=== PATIENT | male | born 1940 | race Caucasian/White ===

== ENCOUNTER 2019-01-03 11:16 | Inpatient (IN) | payer MEDICARE ==
[~2019-01-03] VITALS: Ht 170.2 cm; Wt 112.0 kg
--- NOTE | 2019-01-03 11:56 | NUR ---
PT TO ROOM FROM LOBBY AT THIS TIME.
[2019-01-03] MEDS ORDERED: ASPIRIN 81 MG TABLET CHEW ONE (11:58)
[2019-01-03] MEDS ORDERED: ASPIRIN 81 MG TABLET CHEW PO ONE (12:00)
[2019-01-03] MEDS ORDERED: SODIUM CHLORIDE FLUSH 10ML SYR IVF ONE (12:00)
--- NOTE | 2019-01-03 12:15 | NUR ---
LATE ENTRY FOR 1205 THIS RN IN TO ASSESS PT. RADIOLOGY BEDSIDE. EDMD BEDSIDE. WILL RETURN TO ASSESS AND FOLLOW OUT TASKS.
[2019-01-03] MEDS ORDERED: SODIUM CHLORIDE 0.9%, 500ML IVBOLUS ONE (12:30)
[2019-01-03] MEDS ORDERED: DILTIAZEM 5 MG/ML, 5ML IVPush ONE ×2 (12:30→14:00)
[2019-01-03] MEDS ORDERED: MORPHINE SULFATE 4 MG/ML, 1ML IVPush PRN (12:30)
--- NOTE | 2019-01-03 12:34 | NUR ---
piv established. pt tolerated with no complications. significant other bedside.
[2019-01-03] MEDS ORDERED: DILTIAZEM 5 MG/ML, 5ML ONE ×2 (12:36→13:51)
--- NOTE | 2019-01-03 12:52 | NUR ---
78 Y/O MALE PRESENTS TO ED WITH C/O LEFT HAND PAIN. PER SIGNIFICANT OTHER "WE CAME IN BECAUSE HIS LEFT HAND HAS BEEN HURTING. HE ALSO SEEMED LIKE HE WAS HAVING A HARD TIME BREATHING. HE HAS A HX OF A FIB FOR 5 YEARS." NO ACUTE DISTRESS NOTED. PT PLACED ON CONT PULSE OX,NIBP, BALANCER SCALE. NO C/O N/V/D, TRAUMA, SYNCOPE, CP
[2019-01-03] MEDS ORDERED: RABE20TA18 PO (12:58)
[2019-01-03] MEDS ORDERED: METO-93 PO (12:58)
[2019-01-03] MEDS ORDERED: ZOLP-413 PO (12:58)
[2019-01-03] MEDS ORDERED: LASIX (12:58)
[2019-01-03] MEDS ORDERED: ROSU40TA PO (12:58)
[2019-01-03] MEDS ORDERED: APIX5TAB PO (12:58)
[2019-01-03 12:59] LABS: BASOPHILS # (AUTO) 0.04 x10^3/uL (0-0.1); BASOPHILS % (AUTO) 0 % (0-1); EOSINOPHILS # (AUTO) 0.11 x10^3/uL (0-0.4); EOSINOPHILS % (AUTO) 1 % (1-7); LYMPHOCYTES # (AUTO) 1.57 x10^3/uL (1-3.4); LYMPHOCYTES % (AUTO) 16 % (22-44); MD NO; MEAN CORPUSCULAR HEMOGLOBIN 30.6 pg (27.5-34.5); MEAN CORPUSCULAR HGB CONC 33.4 g/dL (33.2-36.2); MEAN CORPUSCULAR VOLUME 91.8 fL (81-97); MEAN PLATELET VOLUME 7.4 fL (7.4-10.4); MONOCYTES # (AUTO) 0.72 x10^3/uL (0.2-0.8); MONOCYTES % (AUTO) 7 % (2-9); NEUTROPHILS # (AUTO) 7.59 x10^3/uL (1.8-6.8); NEUTROPHILS % (AUTO) 76 % (42-75); PLATELET COUNT 192 x10^3/uL (130-400); RED BLOOD COUNT 4.73 x10^6/uL (4.38-5.82); RED CELL DISTRIBUTION WIDTH 13.5 % (9.4-14.8)
[2019-01-03 13:05] LABS: ALBUMIN 3.2 g/dL (3.4-5.0); ANION GAP 8 mmol/L (5-15); CALCIUM 9.3 mg/dL (8.5-10.1); CHLORIDE 114 mmol/L (98-107)
--- NOTE | 2019-01-03 13:27 | NUR ---
PT RESTING ON GURNEY. NO ACUTE DISTRESS NOTED. HR HAS COME DOWN TO 92-106 AFTER MEDICATION. NO NEEDS REQUESTED AT THIS TIME. SIGNIFICANT OTHER BEDSIDE.
--- NOTE | 2019-01-03 13:31 | NUR ---
BEDSIDE REPORT TO SOF[facility]
[2019-01-03 13:43] LABS: HCT (SEDRATE) 43.5 % (39.2-51.8)
--- NOTE | 2019-01-03 13:48 | NUR ---
Pt resting comfortably, sig. other @ BS. Noted to still be in a-fib with rate 120's 130's. No CP or SOB, BP WNL. ER updated, remainder of labs pending.
--- NOTE | 2019-01-03 14:03 | NUR ---
Rate decreased to 100's after dose cardizem. TBADM. Pt & sig. other updated.
--- NOTE | 2019-01-03 14:26 | NUR ---
Medicated for L hand pain 6/10 as per emar.
[2019-01-03] MEDS ORDERED: COLCHICINE 0.6 MG TABLET PO ONE (14:30)
--- NOTE | 2019-01-03 14:58 | NUR ---
bedside report from RN Ana Maria, pt care assumed at this time. Pt in bed, awaiting admit bed, no needs at this time, WCTM.
[2019-01-03] MEDS ORDERED: NITROGLYCERIN 0.4 MG BOTTLE (25 TABS) SL PRN (16:30)
[2019-01-03] MEDS ORDERED: GABAPENTIN 300 MG CAPSULE PO PRN (16:30)
[2019-01-03] MEDS ORDERED: GUAIFENESIN/COD200MG-20MG/10ML LIQUID PO PRN (16:30)
[2019-01-03] MEDS ORDERED: DOCUSATE 100 MG CAPSULE PO PRN (16:30)
[2019-01-03] MEDS ORDERED: DILTIAZEM 125 MG in SODIUM CHLORIDE 0.9% 100 ML IV SCH (16:30)
[2019-01-03] MEDS ORDERED: ONDANSETRON 2MG/ML, 2ML IVPush PRN (16:30)
[2019-01-03] MEDS ORDERED: morphine SULFATE 10 MG/ML, 1ML IVPush PRN (16:30)
[2019-01-03] MEDS ORDERED: hydrALAzine 20 MG/ML, 1ML IVPush PRN (16:30)
[2019-01-03] MEDS ORDERED: ACETAMINOPHEN 325 MG TABLET PO PRN (16:30)
[2019-01-03] MEDS ORDERED: CYCLOBENZAPRINE 10 MG TABLET PO PRN (16:30)
--- NOTE | 2019-01-03 16:41 | NUR ---
ATTEMPTING TO CALL REPORT, FLOOR RN CAMRYN UNAVAILABLE AT THIS TIME.
[2019-01-03 17:20] LABS: TROPONIN I < 0.015 ng/mL (0.000-0.045)
[2019-01-03 17:29] VITALS: BP 131/91
[2019-01-03 18:58] LABS: TROPONIN I < 0.015 ng/mL (0.000-0.045)
[2019-01-03 19:20] VITALS: BP_SYST 162; BP_SYST 165; BP_DIAS 89; BP_DIAS 93
[2019-01-03] MEDS: TEMPLATE NON-FORMULARY MED. (Rosuvastatin Calcium** (Crestor**) 40 MG) PO SCH (19:55)
[2019-01-03] MEDS: APIXABAN 5 MG TABLET PO SCH (20:34)
[2019-01-03] MEDS: METOPROLOL SUCCINATE 50 MG TAB.ER.24H PO SCH (20:34)
[2019-01-03] MEDS: ZOLPIDEM 5MG TABLET PO SCH (20:34)
[2019-01-03] MEDS ORDERED: FURO-93 PO (21:56)
[2019-01-04 01:20] VITALS: BP 125/71
[2019-01-04 01:24] LABS: TROPONIN I < 0.015 ng/mL (0.000-0.045)
[2019-01-04 05:21] LABS: BASOPHILS # (AUTO) 0.04 x10^3/uL (0-0.1); BASOPHILS % (AUTO) 0 % (0-1); EOSINOPHILS # (AUTO) 0.02 x10^3/uL (0-0.4); EOSINOPHILS % (AUTO) 0 % (1-7); LYMPHOCYTES # (AUTO) 1.31 x10^3/uL (1-3.4); LYMPHOCYTES % (AUTO) 14 % (22-44); MD NO; MEAN CORPUSCULAR HEMOGLOBIN 30.5 pg (27.5-34.5); MEAN CORPUSCULAR HGB CONC 32.6 g/dL (33.2-36.2); MEAN CORPUSCULAR VOLUME 93.8 fL (81-97); MEAN PLATELET VOLUME 7.5 fL (7.4-10.4); MONOCYTES # (AUTO) 0.42 x10^3/uL (0.2-0.8); MONOCYTES % (AUTO) 5 % (2-9); NEUTROPHILS # (AUTO) 7.58 x10^3/uL (1.8-6.8); NEUTROPHILS % (AUTO) 81 % (42-75); PLATELET COUNT 191 x10^3/uL (130-400); RED BLOOD COUNT 4.47 x10^6/uL (4.38-5.82); RED CELL DISTRIBUTION WIDTH 13.8 % (9.4-14.8)
[2019-01-04 05:33] LABS: ANION GAP 7 mmol/L (5-15); CALCIUM 9.2 mg/dL (8.5-10.1); CHLORIDE 111 mmol/L (98-107)
[2019-01-04 05:45] LABS: CHOL/HDL RATIO 3.3; CHOLESTEROL, TOTAL 154 mg/dL (140-239); HDL CHOL % 31 % (26-37); HDL CHOLESTEROL (DIRECT) 47 mg/dL (40-60); LDL CHOLESTEROL,CALCULATED 91 mg/dL (54-169); LDL/HDL RATIO 1.9 (0.5-3.0); THYROID STIMULATING HORMONE 0.435 mIU/L (0.358-3.740); TRIGLYCERIDES 82 mg/dL (50-200); VLDL CHOLESTEROL 16 mg/dL (0-25)
[2019-01-04 07:36] VITALS: BP 155/90
[2019-01-04] MEDS: METOPROLOL SUCCINATE 50 MG TAB.ER.24H PO SCH ×2 (08:54→20:33)
[2019-01-04] MEDS: APIXABAN 5 MG TABLET PO SCH ×2 (08:54→20:33)
[2019-01-04] MEDS: ALLOPURINOL 100 MG TABLET PO SCH (08:54)
[2019-01-04] MEDS ORDERED: RABEPRAZOLE SODIUM 40 MG PO SCH (09:00)
[2019-01-04] MEDS: DILTIAZEM 60 MG TABLET PO SCH ×3 (09:23→20:33)
[2019-01-04 14:40] VITALS: BP 144/88
[2019-01-04 20:19] VITALS: BP 129/80
[2019-01-04] MEDS: TEMPLATE NON-FORMULARY MED. (Rosuvastatin Calcium** (Crestor**) 40 MG) PO SCH (20:34)
[2019-01-04] MEDS: ZOLPIDEM 5MG TABLET PO SCH (22:49)
[2019-01-05 00:32] VITALS: BP 118/82
[2019-01-05] MEDS: DILTIAZEM 60 MG TABLET PO SCH (02:24)
[2019-01-05 07:40] VITALS: BP 147/81
[2019-01-05] MEDS ORDERED: PRED20TA PO (08:03)
[2019-01-05] MEDS ORDERED: DILT180C53 PO (08:03)
[2019-01-05] MEDS ORDERED: ALLO100T30 PO (08:03)
[2019-01-05] MEDS ORDERED: METO-93 PO ×2 (08:03)
[2019-01-05] MEDS: APIXABAN 5 MG TABLET PO SCH (08:57)
[2019-01-05] MEDS: DILTIAZEM CD 180 MG CAP.ER.24H PO SCH (08:57)
[2019-01-05] MEDS: ALLOPURINOL 100 MG TABLET PO SCH (08:58)
[2019-01-05] MEDS: METOPROLOL SUCCINATE 50 MG TAB.ER.24H PO SCH ×2 (08:58→20:02)
[2019-01-05 12:02] LABS: OCCULT BLOOD POSITIVE (NEGATIVE)
[2019-01-05] MEDS: PANTOPRAZOLE 40 MG IV IVPush SCH (12:47)
[2019-01-05 13:30] VITALS: BP 106/73
[2019-01-05 13:30] LABS: BASOPHILS # (AUTO) 0.03 x10^3/uL (0-0.1); BASOPHILS % (AUTO) 0 % (0-1); EOSINOPHILS # (AUTO) 0.09 x10^3/uL (0-0.4); EOSINOPHILS % (AUTO) 1 % (1-7); LYMPHOCYTES # (AUTO) 0.96 x10^3/uL (1-3.4); LYMPHOCYTES % (AUTO) 9 % (22-44); MD NO; MEAN CORPUSCULAR HEMOGLOBIN 29.6 pg (27.5-34.5); MEAN CORPUSCULAR HGB CONC 31.8 g/dL (33.2-36.2); MEAN PLATELET VOLUME 7.4 fL (7.4-10.4); MONOCYTES # (AUTO) 0.14 x10^3/uL (0.2-0.8); MONOCYTES % (AUTO) 1 % (2-9); NEUTROPHILS # (AUTO) 9.15 x10^3/uL (1.8-6.8); NEUTROPHILS % (AUTO) 88 % (42-75); PLATELET COUNT 221 x10^3/uL (130-400); RED BLOOD COUNT 4.58 x10^6/uL (4.38-5.82); RED CELL DISTRIBUTION WIDTH 14.6 % (9.4-14.8)
[2019-01-05] MEDS: D5%-0.45NACL+KCL 20MEQ 1,000 ML IV SCH (13:30)
[2019-01-05 19:53] VITALS: BP 129/80
[2019-01-05] MEDS: TEMPLATE NON-FORMULARY MED. (Rosuvastatin Calcium** (Crestor**) 40 MG) PO SCH (20:03)
[2019-01-05] MEDS: ZOLPIDEM 5MG TABLET PO SCH (22:26)
[2019-01-06] MEDS: PANTOPRAZOLE 40 MG IV IVPush SCH (01:09)
[2019-01-06 01:17] VITALS: BP 118/80
[2019-01-06 05:04] LABS: BASOPHILS # (AUTO) 0.04 x10^3/uL (0-0.1); BASOPHILS % (AUTO) 0 % (0-1); EOSINOPHILS % (AUTO) 1 % (1-7); LYMPHOCYTES # (AUTO) 2.32 x10^3/uL (1-3.4); LYMPHOCYTES % (AUTO) 24 % (22-44); MD NO; MEAN CORPUSCULAR HEMOGLOBIN 30.7 pg (27.5-34.5); MEAN CORPUSCULAR HGB CONC 32.9 g/dL (33.2-36.2); MEAN CORPUSCULAR VOLUME 93.5 fL (81-97); MEAN PLATELET VOLUME 7.3 fL (7.4-10.4); MONOCYTES # (AUTO) 0.47 x10^3/uL (0.2-0.8); MONOCYTES % (AUTO) 5 % (2-9); NEUTROPHILS # (AUTO) 6.83 x10^3/uL (1.8-6.8); NEUTROPHILS % (AUTO) 70 % (42-75); PLATELET COUNT 204 x10^3/uL (130-400); RED BLOOD COUNT 4.39 x10^6/uL (4.38-5.82); RED CELL DISTRIBUTION WIDTH 14.1 % (9.4-14.8)
[2019-01-06 05:15] LABS: ANION GAP 7 mmol/L (5-15); CALCIUM 8.8 mg/dL (8.5-10.1); CHLORIDE 113 mmol/L (98-107); CREATININE 1.37 mg/dL (0.7-1.3)
[2019-01-06 08:05] VITALS: BP 148/96
[2019-01-06] MEDS: D5%-0.45NACL+KCL 20MEQ 1,000 ML IV SCH (10:35)
[2019-01-06] MEDS: DILTIAZEM CD 180 MG CAP.ER.24H PO SCH (10:36)
[2019-01-06] MEDS: ALLOPURINOL 100 MG TABLET PO SCH (10:36)
[2019-01-06] MEDS: METOPROLOL SUCCINATE 50 MG TAB.ER.24H PO SCH ×2 (10:37→21:18)
[2019-01-06 14:00] VITALS: BP 122/82
[2019-01-06] MEDS: PANTOPROZOLE 40MG TABLET PO SCH (16:53)
[2019-01-06 20:48] VITALS: BP 134/88
[2019-01-06] MEDS: TEMPLATE NON-FORMULARY MED. (Rosuvastatin Calcium** (Crestor**) 40 MG) PO SCH (21:00)
[2019-01-06] MEDS: ZOLPIDEM 5MG TABLET PO SCH (22:45)
[2019-01-07 03:07] VITALS: BP 148/85
[2019-01-07] MEDS: D5%-0.45NACL+KCL 20MEQ 1,000 ML IV SCH (05:21)
[2019-01-07] MEDS: PANTOPROZOLE 40MG TABLET PO SCH (06:18)
[2019-01-07 07:58] VITALS: BP 157/97
[2019-01-07] MEDS ORDERED: PROPOFOL 10 MG/ML, 20ML ONE (10:23)
[2019-01-07] MEDS ORDERED: FENTANYL PF 100 MCG/2ML IV PRN (10:30)
[2019-01-07] MEDS ORDERED: ONDANSETRON 2MG/ML, 2ML IV PRN (10:30)
[2019-01-07 11:35] VITALS: BP 152/112
[2019-01-07] MEDS: DILTIAZEM CD 180 MG CAP.ER.24H PO SCH (11:36)
[2019-01-07] MEDS: METOPROLOL SUCCINATE 50 MG TAB.ER.24H PO SCH (11:37)
[2019-01-07] MEDS: ALLOPURINOL 100 MG TABLET PO SCH (11:37)
[2019-01-07 12:04] VITALS: BP 150/90
[2019-01-07] MEDS ORDERED: METO-93 PO (12:54)
[2019-01-07 13:30] VITALS: BP 128/65
[2019-01-07] MEDS ORDERED: OMEPRAZOLE 10 MG CAPSULE.DR PO SCH (17:00)
== END 2019-01-07 16:05 | disposition home or self-care (01) | DRG 553 ==
LOC: ED 14:47 → EDIP 16:44 → 5SO 17:19 → DCLOUNGE 01-07 15:55
PROVIDERS: ADMIT Internal Medicine; ATTEND Internal Medicine
PROC: 0DB68ZX Excision of Stomach, Via Natural or Artificial Opening Endoscopic, Diagnostic (ICD-10-PCS; principal; 2019-01-07 10:30)
DX: M10.9 Gout, unspecified (principal); K29.01 Acute gastritis with bleeding; D68.69 Other thrombophilia; I48.0 Paroxysmal atrial fibrillation; E66.9 Obesity, unspecified; Z68.38 Body mass index [BMI] 38.0-38.9, adult; I12.9 Hypertensive chronic kidney disease with stage 1 through stage 4 chronic kidney disease, or unspecified chronic kidney disease; I25.10 Atherosclerotic heart disease of native coronary artery without angina pectoris; K44.9 Diaphragmatic hernia without obstruction or gangrene; Z96.643 Presence of artificial hip joint, bilateral; I08.0 Rheumatic disorders of both mitral and aortic valves; M19.90 Unspecified osteoarthritis, unspecified site; N18.3 Chronic kidney disease, stage 3 (moderate); Z79.01 Long term (current) use of anticoagulants; Z79.899 Other long term (current) drug therapy; Z80.7 Family history of other malignant neoplasms of lymphoid, hematopoietic and related tissues; Z85.72 Personal history of non-Hodgkin lymphomas; Z82.3 Family history of stroke; Z86.73 Personal history of transient ischemic attack (TIA), and cerebral infarction without residual deficits
CPT/HCPCS: 36415; 71045; 80048; 80061; 82040; 82272; 83735; 83880; 84100; 84443; 84484; 84550; 85014; 85018; 85025; 85651; 86140; 86850; 86900; 88305; 93005; 93306; 96361; 96374; 96376; 99291; G0378; J2704; C9113; J3480; J7040; J7512

== ENCOUNTER 2019-12-15 12:40 | Emergency (ER) | payer MEDICARE ==
[~2019-12-15] VITALS: Ht 170.2 cm; Wt 90.0 kg
[~2019-12-15 12:40] MED LIST: ALLO100T30 PO; APIX5TAB PO; DILT180C53 PO; FURO-93 PO; LASIX; METO-93 PO; PRED20TA PO; RABE20TA18 PO; ROSU40TA PO; ZOLP-413 PO
[2019-12-15] MEDS ORDERED: FURO-93 PO (13:05)
[2019-12-15] MEDS ORDERED: ROSU40TA PO (13:05)
[2019-12-15] MEDS ORDERED: METO200T47 PO (13:05)
[2019-12-15] MEDS ORDERED: DILTIAZEM 5 MG/ML, 5ML ONE (13:15)
[2019-12-15] MEDS ORDERED: DILTIAZEM 5 MG/ML, 5ML IV ONE (13:30)
--- NOTE | 2019-12-15 13:31 | NUR ---
Mid lower back pain. Fell few weeks, saw Dr. Knight @ [facility]. Pain last night spiked, limited mobility. Denies cp, sob, fever, cough. Patient in bed with cont spo2. Cont shuttle fixer. 20 IV right AC. Went over POC from order list, agrees to plan of care. Pt to CT.
[2019-12-15 13:33] LABS: BASOPHILS # (AUTO) 0.03 x10^3/uL (0-0.1); BASOPHILS % (AUTO) 0 % (0-1); EOSINOPHILS # (AUTO) 0.13 x10^3/uL (0-0.4); EOSINOPHILS % (AUTO) 2 % (1-7); LYMPHOCYTES # (AUTO) 1.34 x10^3/uL (1-3.4); LYMPHOCYTES % (AUTO) 18 % (22-44); MD NO; MEAN CORPUSCULAR HEMOGLOBIN 31.2 pg (27.5-34.5); MEAN CORPUSCULAR HGB CONC 33.2 g/dL (33.2-36.2); MEAN CORPUSCULAR VOLUME 94.1 fL (81-97); MEAN PLATELET VOLUME 7.5 fL (7.4-10.4); MONOCYTES % (AUTO) 4 % (2-9); NEUTROPHILS # (AUTO) 5.55 x10^3/uL (1.8-6.8); NEUTROPHILS % (AUTO) 76 % (42-75); PLATELET COUNT 213 x10^3/uL (130-400); RED BLOOD COUNT 4.55 x10^6/uL (4.38-5.82)
[2019-12-15 13:38] LABS: ALBUMIN 3.3 g/dL (3.4-5.0); ANION GAP 6 mmol/L (5-15); CALCIUM 9.2 mg/dL (8.5-10.1); CHLORIDE 114 mmol/L (98-107)
[2019-12-15 13:41] LABS: ALANINE AMINOTRANSFERASE 14 U/L (12-78); ALKALINE PHOSPHATASE 116 U/L (45-117); BILIRUBIN,TOTAL 0.6 mg/dL (0.2-1.0); CREATININE 1.65 mg/dL (0.7-1.3)
[2019-12-15 15:20] VITALS: BP 145/67
== END 2019-12-15 15:24 | disposition home or self-care (01) ==
LOC: ED 12:55
DX: M54.41 Lumbago with sciatica, right side (principal); R00.0 Tachycardia, unspecified; I48.91 Unspecified atrial fibrillation; I10 Essential (primary) hypertension; M19.90 Unspecified osteoarthritis, unspecified site
CPT/HCPCS: 36415; 72131; 72192; 80053; 85025; 93005; 96374; 99285